=== PATIENT | female | born 1980 | race Caucasian/White ===

== ENCOUNTER 2018-08-18 07:53 | Day surgery (SDC) | payer OTHER ==
[2018-08-18 08:28] VITALS: BMI 45.7
[2018-08-18 09:29] VITALS: TEMP 97.7
[2018-08-18 11:16] VITALS: BP 122/83; PULSE 70
--- NOTE | 2018-08-19 10:57 | PATH ---
Surgical Pathology Report Patient Name: WHIT DOMINGUEZ [facility]. Rec. #: [id number] /Age/Gender: 1980 (Age: 38) / F Account: [id number] Location: [facility] [place]OS[place] Taken: 08/18/2018 Received: 08/18/2018 Reported: 08/19/2018 Physicians: Neo Huerta M.D. Specimen(s) Received A: BX 2ND PORTION DUODENUM AND BULB B: BX ANTRUM C: BX GE JUNCTION Clinical History GERD Postoperative diagnosis: GERD, hiatal hernia Final Diagnosis A. SECOND PORTION DUODENUM AND BULB, BIOPSY: DUODENUM MUCOSA WITH NO DIAGNOSTIC ABNORMALITIES. NO HISTOLOGIC EVIDENCE OF CELIAC DISEASE. B. ANTRUM, BIOPSY: GASTRIC MUCOSA WITH MILD CHRONIC GASTRITIS AND INTESTINAL METAPLASIA. IMMUNOSTAIN FOR H. PYLORI IS NEGATIVE. C. GE JUNCTION, BIOPSY: SQUAMOUS EPITHELIUM WITH CHANGES CONSISTENT WITH REFLUX ESOPHAGITIS. NEGATIVE FOR INTESTINAL METAPLASIA. Electronically Signed Raul Soni M.D. Gross Description A. Received in formalin, labeled "biopsy second portion of duodenum and bulb" are 4 abreu, irregular portions of soft tissue ranging from 0.3-0.5 cm. in greatest dimension. The specimens are submitted in toto in one cassette. B. Received in formalin, labeled "biopsy antrum" are 2 abreu, irregular portions of soft tissue measuring 0.3 and 0.5 cm. in greatest dimension. The specimens are submitted in toto in one cassette. C. Received in formalin, labeled "biopsy GE junction" are 3 abreu, irregular portions of soft tissue averaging 0.1 cm. in greatest dimension. The specimens are submitted in toto in one cassette. /08/18/2018 saudi08/18/2018
== END 2018-08-18 09:50 | disposition home or self-care (01) ==
LOC: JASU-ENDO 07:53
PROVIDERS: ATTEND Internal Medicine Gastroenterology
PROC: 0DB68ZX Excision of Stomach, Via Natural or Artificial Opening Endoscopic, Diagnostic (ICD-10-PCS; 2018-08-18)
PROC: 0DB48ZX Excision of Esophagogastric Junction, Via Natural or Artificial Opening Endoscopic, Diagnostic (ICD-10-PCS; 2018-08-18)
PROC: 0DB98ZX Excision of Duodenum, Via Natural or Artificial Opening Endoscopic, Diagnostic (ICD-10-PCS; principal; 2018-08-18 09:00)
DX: K21.0 Gastro-esophageal reflux disease with esophagitis (principal); K44.9 Diaphragmatic hernia without obstruction or gangrene; K22.10 Ulcer of esophagus without bleeding
CPT/HCPCS: 84703; 88305-TC; 88342-TC